=== PATIENT | male | born 1985 | race Hispanic/Latino ===

== ENCOUNTER 2017-10-04 19:47 | Emergency (ER) | payer OTHER ==
[2017-10-04] MEDS ORDERED: HYDROCODONE/APAP 5/325 MG TAB ONE (20:19)
--- NOTE | 2017-10-04 20:39 | RAD REPORT ---
EXAM DESCRIPTION: RAD - Hand Right 3 View - 10/04/2017 8:32 pm CLINICAL HISTORY: Trauma, pain COMPARISON: None. FINDINGS: Oblique fracture involves the proximal phalanx of the fourth digit with mild angulation. M ild adjacent soft tissue swelling is seen.
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
--- NOTE | 2017-10-04 21:28 | EDPHYS ---
Physician Documentation [facility] Name: Uzair Ghosh Jr Age: 31 yrs Sex: Male : 1985 Arrival Date: 10/04/2017 Time: 19:50 Bed 23 Private MD: ED Physician Paramjit Ovalle HPI: 10/04 22:00 This 31 yrs old Male presents to ER via Ambulatory with complaints of Finger pm1 Injury - Right ring. 22:00 The patient or guardian reports pain, swelling. The complaints affect the dorsal aspect pm1 of proximal phalanx of right ring finger. Context: resulted from Punching wall. Onset: The symptoms/episode began/occurred just prior to arrival. Modifying factors: The symptoms are alleviated by nothing, the symptoms are aggravated by movement. Associated signs and symptoms: Pertinent negatives: numbness distally, tingling distally. The patient has not experienced similar symptoms in the past. The patient has not recently seen a physician. Historical: - Allergies: 20:01 No Known Allergies; aj - Home Meds: 20:01 None [Active]; aj - PMHx: 20:01 None; aj - PSHx: 20:01 None; aj - Immunization history:: Adult Immunizations up to date. - Social history:: Smoking status: Patient uses tobacco products. - Ebola Screening: : No symptoms or risks identified at this time. ROS: 22:00 Constitutional: Negative for fever, chills, and weight loss, Eyes: Negative for injury, pm1 pain, redness, and discharge, Cardiovascular: Negative for chest pain, palpitations, and edema, Respiratory: Negative for shortness of breath, cough, wheezing, and pleuritic chest pain, Abdomen/GI: Negative for abdominal pain, nausea, vomiting, diarrhea, and constipation, Back: Negative for injury and pain. 22:00 Skin: Negative for injury, rash, and discoloration, Neuro: Negative for headache, weakness, numbness, tingling, and seizure. 22:00 MS/extremity: Positive for pain, swelling, tenderness, of the dorsal aspect of proximal phalanx of right ring finger. Exam: 22:00 Constitutional: This is a well developed, well nourished patient who is awake, alert, pm1 and in no acute distress. Head/Face: Normocephalic, atraumatic. Chest/axilla: Normal chest wall appearance and motion. Nontender with no deformity. No lesions are appreciated. Cardiovascular: Regular rate and rhythm with a normal S1 and S2. No gallops, murmurs, or rubs. Normal PMI, no JVD. No pulse deficits. Respiratory: Lungs have equal breath sounds bilaterally, clear to auscultation and percussion. No rales, rhonchi or wheezes noted. No increased work of breathing, no retractions or nasal flaring. Abdomen/GI: Soft, non-tender, with normal bowel sounds. No distension or tympany. No guarding or rebound. No evidence of tenderness throughout. Back: No spinal tenderness. No costovertebral tenderness. Full range of motion. Skin: Warm, dry with normal turgor. Normal color with no rashes, no lesions, and no evidence of cellulitis. 22:00 Musculoskeletal/extremity: Extremities: grossly normal except: noted in the dorsal aspect of proximal phalanx of right ring finger: pain, swelling, tenderness. Vital Signs: 20:01 BP 143 / 92; Pulse 82; Resp 16; Temp 98.7; Pulse Ox 98.7% on R/A; Weight 86.18 kg; aj Height 5 ft. 11 in. (180.34 cm); Pain 5/10; 21:37 BP 118 / 67; Pulse 73; Resp 18; Pulse Ox 98% on R/A; aj1 20:01 Body Mass Index 26.50 (86.18 kg, 180.34 cm) aj Procedures: 21:25 Splinting: Splint applied to right hand using Orthoglass splint, applied by tech. pm1 Examined by me, post splint application: neurovascular intact, 2+ distal pulses palpable, brisk capillary refill noted, Patient tolerated well, 4th and 3rd finger emelia taped and then Orthoglass ulnar gutter splint covering the 3rd to 5th finger applied. MDM: 20:05 Patient medically screened. pm1 21:25 Data reviewed: vital signs. Data interpreted: Pulse oximetry: on room air is 98 %. pm1 Interpretation: normal. Counseling: I had a detailed discussion with the patient and/or guardian regarding: the historical points, exam findings, and any diagnostic results supporting the discharge/admit diagnosis, radiology results, the need for outpatient follow up, for definitive care, a hand specialist, to return to the emergency department if symptoms worsen or persist or if there are any questions or concerns that arise at home. 10/04 20:03 Order name: XRAY Hand RIGHT 3 View; Complete Time: 20:48 aj 10/04 20:12 Order name: Ulnar Gutter splint; Complete Time: 21:27 pm1 Administered Medications: 20:30 Drug: [place] 5 mg-325 mg 1 tabs Route: PO; aj 21:32 Follow up: Response: No adverse reaction aj1 Disposition: 10/04/17 21:28 Discharged to Home. Impression: Displaced fracture of proximal phalanx of right ring finger. - Condition is Stable. - Discharge Instructions: Cast or Splint Care, Finger Fracture. - Prescriptions for Tylenol- Codeine #3 300-30 mg Oral Tablet - take 2 tablets by ORAL route every 6 hours As needed; 20 tablet. Diclofenac Sodium 75 mg Oral Tablet Sustained Release - take 1 tablet by ORAL route 2 times per day; 30 tablet. - Work release form, Medication Reconciliation Form, Thank You Letter, Prescription Opioid Use form. - Follow up: Emergency Department; When: As needed; Reason: Worsening of condition. Follow up: Private Physician; When: 2 - 3 days; Reason: Recheck today's complaints, Continuance of care, Re-evaluation by your physician. Follow up: Ozzie Mayorga MD; When: 2 - 3 days; Reason: Recheck today's complaints, Continuance of care, Re-evaluation by your physician. - Problem is new. - Symptoms have improved. - Notes: Dr Allen Perez [address] [place] [address] [id number] Addendum: 10/08/2017 07:15 Co-signature as Attending Physician, Paramjit Ovalle MD. g s Signatures: Dispatcher [employer] EDKaitlin Rocha RN RN aj1 Elizabeth Zimmerman RN RN aj Dao Ruiz, DIRECTOR SALES DIRECTOR SALES pm1 Paramjit Ovalle MD MD Corrections: (The following items were deleted from the chart) 10/04 21:38 21:28 10/04/2017 21:28 Discharged to Home. Impression: Displaced fracture of proximal aj1 phalanx of right ring finger. Condition is Stable. Forms are Medication Reconciliation Form, Thank You Letter, Antibiotic Education, Prescription Opioid Use. Follow up: Emergency Department; When: As needed; Reason: Worsening of condition. Follow up: Private Physician; When: 2 - 3 days; Reason: Recheck today's complaints, Continuance of care, Re-evaluation by your physician. Follow up: Ozzie Mayorga; When: 2 - 3 days; Reason: Recheck today's complaints, Continuance of care, Re-evaluation by your physician. Problem is new. Symptoms have improved. pm1 21:46 21:38 10/04/2017 21:28 Discharged to Home. Impression: Displaced fracture of proximal aj1 phalanx of right ring finger. Condition is Stable. Discharge Instructions: Finger Fracture, Cast or Splint Care. Prescriptions for Tylenol-Codeine #3 300-30 mg Oral Tablet - take 2 tablets by ORAL route every 6 hours As needed; 20 tablet, Diclofenac Sodium 75 mg Oral Tablet Sustained Release - take 1 tablet by ORAL route 2 times per day; 30 tablet. and Forms are Medication Reconciliation Form, Thank You Letter, Prescription Opioid Use. Follow up: Emergency Department; When: As needed; Reason: Worsening of condition. Follow up: Private Physician; When: 2 - 3 days; Reason: Recheck today's complaints, Continuance of care, Re-evaluation by your physician. Follow up: Ozzie Mayorga; When: 2 - 3 days; Reason: Recheck today's complaints, Continuance of care, Re-evaluation by your physician. Problem is new. Symptoms have improved. aj1
== END 2017-10-04 21:46 | disposition home or self-care (01) ==
LOC: ER 19:47
DX: S62.614A Displaced fracture of proximal phalanx of right ring finger, initial encounter for closed fracture (principal); W22.09XA Striking against other stationary object, initial encounter; Y93.89 Activity, other specified; Y92.9 Unspecified place or not applicable; Z72.0 Tobacco use
CPT/HCPCS: 99283

== ENCOUNTER 2017-10-11 10:47 | Day surgery (SDC) | payer OTHER ==
[2017-10-11] MEDS ORDERED: CEFAZOLIN/SWI 1gm 1 GM/10 ML SYR IVP SCH (11:00)
[2017-10-11 11:01] LABS: Absolute Lymphocytes (CBC) 1.5 K/uL (0.7-4.9); Absolute Monocytes 0.4 K/uL (0.1-1.3); Absolute Neutrophil 2.3 K/uL (1.8-8.0); Basophils % 0.3 % (0-1.3); Eosinophils % 3.2 % (0-4.4); Hematocrit 45.9 % (39.6-49.0); Lymphocytes % 34.7 % (15.3-44.8); MCH 29.2 pg (27.0-35.0); MCV 86.3 fL (80-100); MPV 9.4 fL (7.6-11.3); Monocytes % 9.6 % (3.3-12.3); RBC Red Blood Cell Count 5.32 M/uL (4.33-5.43)
[2017-10-11] MEDS ORDERED: CEFAZOLIN/SWI 1gm 1 GM/10 ML SYR ONE (11:04)
[2017-10-11] MEDS: Ringers Lactate 1,000 ML IV ONE ×2 (11:14→14:07)
[2017-10-11 11:42] LABS: BUN Blood Urea Nitrogen 14 mg/dL (6-20); Bicarbonate 33 mEq/L (21-31); Glucose Level 94 mg/dL (65-120); Potassium 4.6 mEq/L (3.6-5.0); Sodium Level 138 mEq/L (135-145)
[2017-10-11] MEDS ORDERED: FENTANYL CITR 100 MCG/2 ML ONE (13:50)
[2017-10-11] MEDS ORDERED: MIDAZOLAM HCL 2 MG/2 ML INJ ONE (13:50)
[2017-10-11] MEDS ORDERED: PROPOFOL 200 MG/20 ML VIAL IV ONE (13:50)
[2017-10-11] MEDS ORDERED: KETOROLAC 30 MG/ML INJ ONE (14:12)
[2017-10-11] MEDS ORDERED: CEFAZOLIN SODIUM 1 GM/VIAL ONE (14:49)
[2017-10-11] MEDS ORDERED: ONDANSETRON HCL 40 MG/20 ML VIAL ONE (14:49)
--- NOTE | 2017-10-11 15:05 | P.BOP ---
Preoperative diagnosis: right 4th proximal phalanx fracture Postoperative diagnosis: same Primary procedure: right 4th phalanx crpp Estimated blood loss: 2ccs Anesthesia: General Complications: None Transferred to: Recovery Room Condition: Good
[2017-10-11] MEDS ORDERED: MEPERIDINE HCL 25 MG/0.5 ML ONE ×2 (15:20→15:27)
[2017-10-11] MEDS ORDERED: CODEINE 30MG/APAP 300MG TAB ONE (16:17)
--- NOTE | 2017-10-11 17:21 | OP ---
Date of Procedure: 10/11/2017 Surgeon: Nicola Hager MD Preoperative Diagnosis: Right fourth comminuted displaced proximal phalanx fracture of the finger. Postoperative Diagnosis: Right fourth comminuted displaced proximal phalanx fracture of the finger. Procedure: Right fourth proximal phalanx closed reduction with pin fixation. Estimated Blood Loss: 30 cc. Complications: There were no complications. Specimen: No pathology specimen sent. Indications For Operation: Mr. Ghosh is a patient, who unfortunately struck his hand about a week a go and had immediate pain and problems. He was then seen at an outside facility. X-ray was taken, w [facility] demonstrated comminuted grossly displaced fracture of the fourth proximal phalanx. All risks, b enefits, and alternatives to operative intervention were discussed with the patient. He states he un derstands things as presented and wishes to proceed. Description Of Procedure: The patient was taken to the operating room and placed in supine position. General anesthesia obtained by the staff. Following this, his right upper extremity was then prepp ed and draped in the usual sterile fashion. C-arm was brought in and the fracture was still grossly displaced. It was highly unstable. There was no chance for closed reduction that would hold in any reasonable position. Therefore, decision made to move forward with pin fixation and a pin was then p laced proximal and distal. This pin does cross the fracture site and while the finger is held and a good position of reduction, it does obtain a second cortical bite distally. This appears to hold the fracture actually very well. I am not really that concerned it will be too much rotation about the pin because of the oblique nature of the fracture. The rotation was checked vigorously and does not appear to have any malrotation. The angulation actually appears to be quite good as well. There was some consideration of attempting to place a second pin from the more radial aspect. As this was mary chris, it contacts the other pin and decision was made to just keep the ulnar-sided pin and as the earnestine ent is in the splint, this should serve very well. The patient was then placed in a very well padded sterile dressing, an ulnar gutter splint, awakened, and taken to recovery room in good condition. T here were no complications. /JESÚS Voice ID: [id number] Report ID: [id number]
--- NOTE | 2017-10-13 09:21 | RAD REPORT ---
EXAM DESCRIPTION: RAD - Hand Right 2 View - 10/11/2017 3:10 pm CLINICAL HISTORY: Right fourth proximal phalanx fracture. COMPARISON: None. FINDINGS: Multiple fluoroscopic spot images are submitted. The exam was performed by Dr. Hager. Pinning of a fracture of the fourth metacarpal is performed. Two pins have been placed. The pins wit h respect to the fracture site is not well seen on the lateral view secondary to overlying bone.
== END 2017-10-11 16:50 | disposition home or self-care (01) ==
LOC: OR 10:47
PROVIDERS: ATTEND Orthopaedic Surgery
PROC: 0PST34Z Reposition Right Finger Phalanx with Internal Fixation Device, Percutaneous Approach (ICD-10-PCS; principal; 2017-10-11 11:30)
DX: S62.614A Displaced fracture of proximal phalanx of right ring finger, initial encounter for closed fracture (principal)
CPT/HCPCS: 36415; 80048; 85025; J0690; J2175; J2250; J2405; J3010

== ENCOUNTER 2019-05-13 11:03 | Emergency (ER) | payer BC, OTHER ==
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
--- NOTE | 2019-05-13 12:46 | EDPHYS ---
Physician Documentation [facility] Name: Uzair Ghosh Jr Age: 33 yrs Sex: Male : 1985 Arrival Date: 05/13/2019 Time: 11:07 Bed 19 Private MD: ED Physician Duarte Shore HPI: 05/13 12:34 This 33 yrs old Male presents to ER via Ambulatory with complaints of Neck and ma2 Upper Back Pain, Shoulder Pain. 12:43 The patient or guardian complains of contusion, pain. Onset: The symptoms/episode ma2 began/occurred gradually, 1 day(s) ago. Associated signs and symptoms: Pertinent negatives: fever, bowel incontinence, tingling, vomiting. Severity of symptoms: At their worst the symptoms were mild, in the emergency department the symptoms are unchanged. The patient has not experienced similar symptoms in the past. Historical: - Allergies: 11:31 No Known Allergies; sv - PMHx: 11:31 None; sv - PSHx: 11:31 finger; sv - Immunization history:: Flu vaccine is not up to date. - Social history:: Smoking status: Patient uses tobacco products, vape, Patient/guardian denies using alcohol, street drugs, The patient lives with family. - Ebola Screening: : No symptoms or risks identified at this time. - Family history:: not pertinent. ROS: 12:43 Constitutional: Negative for fever, chills, and weight loss. ma2 12:43 All other systems are negative. Exam: 12:43 Constitutional: This is a well developed, well nourished patient who is awake, alert, ma2 and in no acute distress. ENT: Nares patent. No nasal discharge, no septal abnormalities noted. Tympanic membranes are normal and external auditory canals are clear. Oropharynx with no redness, swelling, or masses, exudates, or evidence of obstruction, uvula midline. Mucous membranes moist. Neck: Trachea midline, no thyromegaly or masses palpated, and no cervical lymphadenopathy. Supple, full range of motion without nuchal rigidity, or vertebral point tenderness. No Meningismus. Chest/axilla: Normal chest wall appearance and motion. Nontender with no deformity. No lesions are appreciated. Cardiovascular: Regular rate and rhythm with a normal S1 and S2. No gallops, murmurs, or rubs. Normal PMI, no JVD. No pulse deficits. Respiratory: Lungs have equal breath sounds bilaterally, clear to auscultation and percussion. No rales, rhonchi or wheezes noted. No increased work of breathing, no retractions or nasal flaring. Abdomen/GI: Soft, non-tender, with normal bowel sounds. No distension or tympany. No guarding or rebound. No evidence of tenderness throughout. Skin: Warm, dry with normal turgor. Normal color with no rashes, no lesions, and no evidence of cellulitis. MS/ Extremity: Pulses equal, no cyanosis. Neurovascular intact. Full, normal range of motion. Vital Signs: 11:31 BP 127 / 78; Pulse 78; Resp 16; Pulse Ox 100% ; Weight 90.72 kg; Height 5 ft. 11 in. sv (180.34 cm); Pain 6/10; 11:31 Body Mass Index 27.89 (90.72 kg, 180.34 cm) sv MDM: 11:17 Patient medically screened. ma2 12:43 Differential diagnosis: cervical strain, fracture, torticollis. Data reviewed: vital ma2 signs, nurses notes. Counseling: I had a detailed discussion with the patient and/or guardian regarding: the historical points, exam findings, and any diagnostic results supporting the discharge/admit diagnosis, the presence of at least one elevated blood pressure reading (>120/80) during this emergency department visit, the need for outpatient follow up. Response to treatment: the patient's symptoms have markedly improved after treatment. 05/13 11:33 Order name: CT Head C Spine; Complete Time: 12:34 ma2 Administered Medications: 12:50 Drug: Tylenol #3 (300 mg-30 mg) 1 tablet Route: PO; sg 13:20 Follow up: Response: No adverse reaction; Pain is decreased sg Disposition: 05/13/19 12:45 Discharged to Home. Impression: Strain of muscle, fascia and tendon at neck level. - Condition is Stable. - Discharge Instructions: Muscle Pain, Adult. - Prescriptions for Tylenol- Codeine #3 300-30 mg Oral Tablet - take 2 tablet by ORAL route every 6 hours As needed; 30 tablet. - Work release form, Medication Reconciliation Form, Thank You Letter, Antibiotic Education, Prescription Opioid Use form. - Follow up: Private Physician; When: [place]; Reason: Continuance of care. Signatures: Dispatcher [employer] Lydia Aguillon, RN Nicola Browning RN RN sg Williams, Irene, RN RN iw Alzahri, Mohammad, MD MD ma2 Corrections: (The following items were deleted from the chart) 12:59 12:45 05/13/2019 12:45 Discharged to Home. Impression: Strain of muscle, fascia and iw tendon at neck level. Condition is Stable. Forms are Medication Reconciliation Form, Thank You Letter, Antibiotic Education, Prescription Opioid Use. Follow up: Private Physician; When: Tomorrow; Reason: Continuance of care. ma2
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
[2019-05-13] MEDS ORDERED: CODEINE 30MG/APAP 300MG TAB ONE (12:53)
[2019-05-13 13:04] VITALS: BP 127/78; O2SAT 100
== END 2019-05-13 12:59 | disposition home or self-care (01) ==
LOC: ER 11:03
DX: S16.1XXA Strain of muscle, fascia and tendon at neck level, initial encounter (principal); X58.XXXA Exposure to other specified factors, initial encounter; Y93.9 Activity, unspecified; Y92.9 Unspecified place or not applicable; F17.290 Nicotine dependence, other tobacco product, uncomplicated
CPT/HCPCS: 70450; 72125; 99284